=== PATIENT | female | born 1985 | race Caucasian/White ===

== ENCOUNTER 2018-10-08 13:00 | Observation (INO) | payer OTHER ==
[~2018-10-08] VITALS: Ht 170 cm; Wt 82.1 kg
[2018-10-08] MEDS ORDERED: BETAMETHASONE SOLUSPAN 6 MG/ML 5 ML VIAL IM ONE (13:30)
[2018-10-08] MEDS ORDERED: METF-960 PO (13:50)
[2018-10-08] MEDS ORDERED: PREN-134 PO (13:50)
[2018-10-08 13:51] VITALS: BP 117/77
== END 2018-10-08 14:30 | disposition home or self-care (01) ==
LOC: 4S 13:00
PROVIDERS: ADMIT Obstetrics & Gynecology; ATTEND Obstetrics & Gynecology
DX: O09.93 Supervision of high risk pregnancy, unspecified, third trimester (principal); Z3A.36 36 weeks gestation of pregnancy
CPT/HCPCS: 81002; 96372; G0378; J0702

== ENCOUNTER 2018-10-09 13:15 | Observation (INO) | payer OTHER ==
[~2018-10-09] VITALS: Ht 170 cm; Wt 82.1 kg
[~2018-10-09 13:15] MED LIST: METF-960 PO; PREN-134 PO
[2018-10-09] MEDS ORDERED: BETAMETHASONE SOLUSPAN 6 MG/ML 5 ML VIAL IM ONE (13:30)
== END 2018-10-09 14:15 | disposition home or self-care (01) ==
LOC: 4S 13:15
PROVIDERS: ADMIT Obstetrics & Gynecology; ATTEND Obstetrics & Gynecology
DX: O24.419 Gestational diabetes mellitus in pregnancy, unspecified control (principal); Z3A.37 37 weeks gestation of pregnancy
CPT/HCPCS: 81002; 96372; G0378; J0702

== ENCOUNTER 2018-10-10 09:15 | Inpatient (IN) | payer OTHER ==
[~2018-10-10] VITALS: Ht 170.2 cm; Wt 82.1 kg
[~2018-10-10 09:15] MED LIST changes: +BETAMETHASONE SOLUSPAN 6 MG/ML 5 ML VIAL ONE
[2018-10-10] MEDS ORDERED: RINGERS SOLUTION,LACTATED 1,000 ML IV SCH (10:22)
[2018-10-10] MEDS ORDERED: RINGERS SOLUTION,LACTATED 1,000 ML IV PRN (10:22)
[2018-10-10 10:29] VITALS: BP 132/85
[2018-10-10] MEDS ORDERED: CITRIC ACID/SODIUM CITRATE 30 ML SOLUTION UDCUP PO PRN (10:30)
[2018-10-10] MEDS ORDERED: OXYGEN THERAPY IH SCH ×3 (10:30→20:00)
[2018-10-10] MEDS ORDERED: METOCLOPRAMIDE HCL 5 MG/ML 2 ML VIAL IVP PRN (10:30)
[2018-10-10 11:08] LABS: EOSINOPHILS % (AUTO) 0 % (1.0-6.0); HEMATOCRIT 31.7 % (36-46); HEMOGLOBIN 10.8 g/dL (12.0-16.0); LYMPHOCYTES # (AUTO) 2.1 K/uL (1.0-4.8); LYMPHOCYTES % (AUTO) 20.5 % (22.0-44.0); MEAN CORPUSCULAR HEMOGLOBIN 32.3 pg (26.0-34.0); MEAN CORPUSCULAR HGB CONC 34.1 G/dL (31.0-37.0); MEAN CORPUSCULAR VOLUME 95 fL (80-100); MONOCYTES # (AUTO) 0.8 K/uL (0.1-1.0); MONOCYTES % (AUTO) 7.9 % (2.0-9.0); NEUTROPHILS # (AUTO) 7.2 K/uL (1.8-7.7); NEUTROPHILS % (AUTO) 71.6 % (40.0-70.0); PLATELET COUNT (AUTO)-OB 178 K/uL (150-450); RED BLOOD CELL COUNT(AUTO) 3.35 MIL/uL (4.00-5.20); RED CELL DISTRIBUTION WIDTH 14.8 % (11.5-14.5)
[2018-10-10] MEDS ORDERED: BUPIVACAINE HCL/DEX-WATER/PF 0.75% 2 ML AMP ONE (12:08)
[2018-10-10] MEDS ORDERED: FentaNYL CITRATE-PF 100 MCG/2 ML VIAL ONE (12:08)
[2018-10-10] MEDS ORDERED: ACETAMINOPHEN 1000 MG/ISO-OSM 100 ML IV ONE ×2 (12:08→13:30)
[2018-10-10] MEDS ORDERED: MORPHINE SULFATE/PF 0.5 MG/ML 10 ML AMP ONE (12:08)
[2018-10-10] MEDS ORDERED: FentaNYL CITRATE-PF 100 MCG/2 ML VIAL IVP PRN ×2 (13:30→13:45)
[2018-10-10] MEDS ORDERED: DiphenhydrAMINE HCL 50 MG/ML VIAL IVP PRN ×2 (13:30→13:45)
[2018-10-10] MEDS ORDERED: DEXAMETHASONE SOD PHOS 4 MG/ML VIAL IVP PRN (13:30)
[2018-10-10] MEDS ORDERED: ONDANSETRON HCL 4 MG/2 ML VIAL IVP PRN ×2 (13:30→13:45)
[2018-10-10] MEDS ORDERED: NALOXONE HCL 0.4 MG/ML VIAL IVP PRN (13:45)
[2018-10-10] MEDS ORDERED: ACETAMINOPHEN/CODEINE 300-30 MG TABLET PO PRN ×2 (14:15)
[2018-10-10] MEDS ORDERED: LANOLIN 7 GM OINTMENT TP PRN (14:15)
[2018-10-10] MEDS: DEXTROSE 5%-0.45% SODIUM CHL 1,000 ML IV SCH ×2 (16:05→20:34)
[2018-10-10] MEDS: ACETAMINOPHEN 1000 MG/ISO-OSM 100 ML IV SCH (21:22)
[2018-10-11] MEDS: DEXTROSE 5%-0.45% SODIUM CHL 1,000 ML IV SCH ×2 (01:53→05:50)
[2018-10-11] MEDS ORDERED: KETOROLAC TROMETHAMINE 60 MG/2 ML VIAL IM ONE (05:18)
[2018-10-11] MEDS ORDERED: OXYTOCIN 10 UNITS/ML VIAL IM ONE (05:18)
[2018-10-11] MEDS ORDERED: 0.9% SODIUM CHLORIDE 10 ML VIAL IVP ONE (05:18)
[2018-10-11] MEDS ORDERED: ONDANSETRON HCL 4 MG/2 ML VIAL IVP ONE (05:18)
[2018-10-11] MEDS ORDERED: EPHEDrine SULFATE 50 MG/ML VIAL IM ONE (05:18)
[2018-10-11] MEDS: ACETAMINOPHEN 1000 MG/ISO-OSM 100 ML IV SCH (05:42)
[2018-10-11] MEDS: MAGNESIUM HYDROXIDE SUSPENSION 30 ML UDCUP PO SCH ×2 (08:54→20:12)
[2018-10-11] MEDS: IBUPROFEN 800 MG TABLET PO SCH ×3 (08:54→20:12)
[2018-10-12] MEDS: IBUPROFEN 800 MG TABLET PO SCH ×4 (01:44→19:54)
[2018-10-12] MEDS: MAGNESIUM HYDROXIDE SUSPENSION 30 ML UDCUP PO SCH ×2 (08:15→20:28)
[2018-10-13] MEDS: IBUPROFEN 800 MG TABLET PO SCH ×2 (01:32→07:39)
[2018-10-13] MEDS: MAGNESIUM HYDROXIDE SUSPENSION 30 ML UDCUP PO SCH (07:40)
[2018-10-13] MEDS ORDERED: IBUP-2071 PO (10:11)
== END 2018-10-13 11:50 | disposition home or self-care (01) | DRG 785 ==
LOC: 4S 09:15 → OBSVTOIN 09:15
PROVIDERS: ADMIT Obstetrics & Gynecology; ATTEND Obstetrics & Gynecology
PROC: 10D00Z1 Extraction of Products of Conception, Low, Open Approach (ICD-10-PCS; principal; 2018-10-10)
PROC: 0UB70ZZ Excision of Bilateral Fallopian Tubes, Open Approach (ICD-10-PCS; 2018-10-10)
DX: O34.211 Maternal care for low transverse scar from previous cesarean delivery (principal); Z3A.37 37 weeks gestation of pregnancy; Z37.0 Single live birth; Z30.2 Encounter for sterilization
CPT/HCPCS: 86850; 86870; 86900; 86901; 87081; 88302; J0131; J0690; J1885; J2274; J2405; J2590; J2765; J3010; J3490; J7120